=== PATIENT | male | born 1955 | race Caucasian/White ===

== ENCOUNTER 2016-10-12 07:56 | Emergency (ER) | payer BC ==
[2016-10-12] MEDS ORDERED: Sodium Chloride 0.9% 10 ML Syringe FLUSH PRN (08:31)
[2016-10-12] MEDS ORDERED: Ondansetron 4 MG/2 ML SDV IVPUSH ONE (08:31)
[2016-10-12] MEDS ORDERED: Sodium Chloride 0.9% 1,000 ML IV STA (08:31)
[2016-10-12] MEDS ORDERED: HYDROmorphone 0.5 MG/0.5 ML Syringe IVPUSH ONE (08:32)
--- NOTE | 2016-10-12 09:13 | EDM.PDOC ---
ED HPI GENERAL MEDICAL PROBLEM - General Chief Complaint: Abdominal Pain Stated Complaint: ABDOMINAL PAIN Time Seen by Provider: 10/12/16 08:20 Source of Information: Reports: Patient History Limitations: Reports: No Limitations - History of Present Illness INITIAL COMMENTS - FREE TEXT/NARRATIVE: The patient woke up with RUQ abdominal pain early this morning at 3am. He has nausea and vomiting with it. He has no diarrhea or dysuria. When he went to bed last night, he was feeling fine. He has no fever, chills, cough, chest pain or shortness of breath. He still has his appendix and gallbladder. Onset: Sudden Duration: Hour(s): (3am) Location: Reports: Abdomen Quality: Reports: Sharp Severity: Moderate Improves with: Reports: None Worsens with: Reports: None Context: Reports: Activity (sleeping) Associated Symptoms: Reports: Nausea/Vomiting. Denies: Chest Pain, Cough, Fever /Chills, Shortness of Breath Right Middle Abdominal Pain Score (Numeric/FACES): 10 - Related Data Allergies Allergy/AdvReac Type Severity Reaction Status Date / Time No Known Allergies Allergy Verified 10/12/16 08:06 Home Meds: Home Meds Albuterol [IJD: Ventolin HFA] 2 puff INH DAILY PRN 10/12/16 [History] Aspirin [Ecotrin] 81 mg PO DAILY 10/12/16 [History] Doxepin [SINEquan] 30 mg PO DAILY 10/12/16 [History] Glycopyrrolate [Robinul] 1 mg PO TID PRN #20 tablet 10/12/16 [Rx] Hydrocodone/Acetaminophen [Hydrocodon-Acetaminophen 5-325] 1 - 2 each PO Q6HR PRN #20 tablet 10/12/16 [Rx] Past Medical History - Past Health History Medical/Surgical History: Denies Medical/Surgical History Respiratory History: Reports: Asthma Psychiatric History: Reports: None Social & Family History - Tobacco Use Smoking Status *Q: Never Smoker Second Hand Smoke Exposure: No ED ROS GENERAL - Review of Systems Review Of Systems: See Below Constitutional: Reports: No Symptoms HEENT: Reports: No Symptoms Respiratory: Reports: No Symptoms Cardiovascular: Reports: No Symptoms Endocrine: Reports: No Symptoms GI/Abdominal: Reports: Abdominal Pain, Nausea, Vomiting. Denies: Diarrhea : Reports: No Symptoms Musculoskeletal: Reports: No Symptoms ED EXAM, GI/ABD - Physical Exam Exam: See Below Exam Limited By: No Limitations General Appearance: Alert, No Apparent Distress Ears: Normal External Exam Nose: Normal Inspection Head: Atraumatic, Normocephalic Neck: Normal Inspection Respiratory/Chest: No Respiratory Distress, Lungs Clear, Normal Breath Sounds Cardiovascular: Regular Rate, Rhythm, No Edema, No Murmur GI/Abdominal: Soft, No Organomegaly, No Mass, Tenderness (Moderate to the RUQ) Course - Vital Signs Last Recorded V/S: Last Vital Signs Temp 96.6 F 10/12/16 08:02 Pulse 63 10/12/16 08:02 Resp 18 10/12/16 08:02 BP 160/99 H 10/12/16 08:02 Pulse Ox 98 10/12/16 08:02 - Orders/Labs/Meds Orders: Active Orders 24 hr Category Date Time Status Peripheral IV Care [RC] . DIRECTED Care 10/12/16 08:31 Active Sodium Chloride 0.9% [Saline Flush] Med 10/12/16 08:31 Active 10 ml FLUSH ASDIRECTED PRN ED Antiemetic Medication Reflex [OM.PC] Stat Oth 10/12/16 08:32 Ordered Peripheral IV Insertion Adult [OM.PC] Stat Oth 10/12/16 08:31 Ordered Medication Orders Sodium Chloride (Saline Flush) 10 ml FLUSH ASDIRECTED PRN PRN Reason: Keep Vein Open Last Admin: 10/12/16 08:41 Dose: 10 ml Labs: Laboratory Tests 10/12/16 10/12/16 10/12/16 Range/Units 08:31 08:31 10:12 WBC 8.72 (4.23-9.07) K/mm3 RBC 4.95 (4.63-6.08) M/mm3 Hgb 15.1 (13.7-17.5) gm/L Hct 44.3 (40.1-51.0) % MCV 89.5 (79.0-92.2) fl MCH 30.5 (25.7-32.2) pg MCHC 34.1 (32.2-35.5) g/dl RDW Std Deviation 46.1 H (35.1-43.9) fL Plt Count 187 (163-337) K/mm3 MPV 10.5 (9.4-12.3) fl Neut % (Auto) 80.2 H (34.0-67.9) % Lymph % (Auto) 12.5 L (21.8-53.1) % Sanders % (Auto) 6.3 (5.3-12.2) % Eos % (Auto) 0.6 L (0.8-7.0) Baso % (Auto) 0.3 (0.1-1.2) % Neut # (Auto) 6.99 H (1.78-5.38) K/mm3 Lymph # (Auto) 1.09 L (1.32-3.57) K/mm3 Sanders # (Auto) 0.55 (0.30-0.82) K/mm3 Eos # (Auto) 0.05 (0.04-0.54) K/mm3 Baso # (Auto) 0.03 (0.01-0.08) K/mm3 Sodium 138 (136-145) mEq/L Potassium 4.1 (3.5-5.1) mEq/L Chloride 103 (98-107) mEq/L Carbon Dioxide 29 (21-32) mEq/L Anion Gap 10.1 (5-15) BUN 25 H (7-18) mg/dL Creatinine 1.4 H (0.7-1.3) mg/dL Est Cr Clr Drug Dosing 65.39 mL/min Estimated GFR (MDRD) 51 (>60) mL/min BUN/Creatinine Ratio 17.9 (14-18) Glucose 117 H (80-115) mg/dL Calcium 8.7 (8.5-10.1) mg/dL Total Bilirubin 0.6 (0.2-1.0) mg/dL AST 18 (15-37) U/L ALT 23 (16-63) U/L Alkaline Phosphatase 70 (46-116) U/L Total Protein 7.2 (6.4-8.2) g/dl Albumin 3.9 (3.4-5.0) g/dl Globulin 3.3 gm/dL Albumin/Globulin Ratio 1.2 (1-2) Lipase 138 (73-393) U/L Urine Color Yellow (Yellow) Urine Appearance Clear (Clear) Urine pH 6.5 (5.0-8.0) Ur Specific Daggett > or = 1.030 (1.005-1.030) Urine Protein 1+ H (Negative) Urine Glucose (UA) Negative (Negative) Urine Ketones Negative (Negative) Urine Occult Blood Negative (Negative) Urine Nitrite Negative (Negative) Urine Bilirubin Negative (Negative) Urine Urobilinogen 0.2 (0.2-1.0) Ur Leukocyte Esterase Negative (Negative) Urine RBC 0-5 (0-5) /hpf Urine WBC 0-5 (0-5) /hpf Ur Epithelial Cells 0-5 (0-5) /hpf Urine Bacteria Not seen (FEW) /hpf Urine Mucus Not seen (FEW) /hpf Meds: Medications Generic Name Dose Route Start Last Admin Trade Name Freq PRN Reason Stop Dose Admin Sodium Chloride 10 ml 10/12/16 08:31 10/12/16 08:41 Saline Flush FLUSH 10 ml ASDIRECTED PRN Administration Keep Vein Open Discontinued Medications Generic Name Dose Route Start Last Admin Trade Name Freq PRN Reason Stop Dose Admin Hydromorphone HCl 0.5 mg 10/12/16 08:32 10/12/16 08:39 Dilaudid IVPUSH 10/12/16 08:33 0.5 mg ONETIME ONE Administration Sodium Chloride 1,000 mls @ 1,000 mls/hr 10/12/16 08:31 10/12/16 08:39 Normal Saline IV 10/12/16 09:30 1,000 mls/hr .BOLUS STA Administration Ondansetron HCl 4 mg 10/12/16 08:31 10/12/16 08:39 Zofran IVPUSH 10/12/16 08:32 4 mg ONETIME ONE Administration - Re-Assessments/Exams Free Text/Narrative Re-Assessment/Exam: 10/12/16 09:11 I ordered an IV NS 1L bolus, zofran 4mg IV, dilaudid 0.5mg IV, labs, UA and an US of the RUQ. I did an US and he did have an dilated gallbladder. I am not sure of the ducts so I will get an official scan done. 10/12/16 11:56 His CBC and CMP look good. His lipase is negative. His UA shows no UTI. His US showed a 1.3cm abnormality within the liver most likely representing hemangioma. No additional abnormality is appreciated on right upper quadrant abdominal ultrasound. He is now having some pain in his right flank. I then ordered a CT of his abdomen and pelvis to look for a kidney stone. It showed a 9mm stone in the gallbladder which is most likely due to a cystic duct stone. Difficult to exclude cystic duct obstruction. This is not identified even in retrospect on prior US which may relate to this area being hidden by bowel gas. I called Dr Luevano our general surgeon and he recommended I put him on some robinul and he can follow up back at home with a general surgeon to have his gallbladder out. He is feeling good now. I will discharge him home. Departure - Departure Time of Disposition: 12:00 Disposition: Home, Self-Care 01 Condition: Good Clinical Impression: Gall stone Qualifiers: Cholecystitis presence: without cholecystitis Biliary obstruction: with biliary obstruction Qualified Code(s): K80.21 - Calculus of gallbladder without cholecystitis with obstruction - Discharge Information Prescriptions: Hydrocodone/Acetaminophen [Hydrocodon-Acetaminophen 5-325] 1 - 2 each PO Q6HR PRN #20 tablet PRN Reason: Pain Glycopyrrolate [Robinul] 1 mg PO TID PRN #20 tablet PRN Reason: Pain Forms: ED Department Discharge Additional Instructions: Avoid fried/greasy/fatty food. Take the robinul 3 times per day as needed for any pain and if that does not work try some hydrocodone. Follow up with your doctor when you get home. Please return if you are worse. - My Orders Last 24 Hours: My Active Orders 10/12/16 08:31 Peripheral IV Care [RC] . DIRECTED Sodium Chloride 0.9% [Saline Flush] 10 ml FLUSH ASDIRECTED PRN Peripheral IV Insertion Adult [OM.PC] Stat 10/12/16 08:32 ED Antiemetic Medication Reflex [OM.PC] Stat - Assessment/Plan Last 24 Hours: My Active Orders 10/12/16 08:31 Peripheral IV Care [RC] . DIRECTED Sodium Chloride 0.9% [Saline Flush] 10 ml FLUSH ASDIRECTED PRN Peripheral IV Insertion Adult [OM.PC] Stat 10/12/16 08:32 ED Antiemetic Medication Reflex [OM.PC] Stat
--- NOTE | 2016-10-12 10:37 | US ---
Limited abdominal ultrasound: Multiple real-time images were obtained of the right upper quadrant. No previous abdominal imaging. Findings: Gallbladder shows no gallstones. No gallbladder wall thickening or biliary duct dilatation is seen. Right kidney shows no hydronephrosis or mass. Pancreas is incompletely seen. Visualized portions of the pancreas appear within normal limits. Hyperechoic lesion is identified within the liver measuring approximately 1.3 cm most likely due to small hemangioma. No additional abnormality is appreciated within the liver. Impression: 1. 1.3 cm abnormality within the liver most likely representing hemangioma. 2. No additional abnormality is appreciated on right upper quadrant abdominal ultrasound. Diagnostic code #2
--- NOTE | 2016-10-12 11:35 | CT ---
CT abdomen and pelvis Technique: Multiple axial sections were obtained from above the dome of the diaphragm inferiorly through the pubic symphysis. Intravenous and oral contrast have not been given. Study was performed as a ureteral stone protocol. Comparison: Previous right upper quadrant abdominal ultrasound performed earlier on the same day (09:10 AM). Findings: Kidneys show no abnormal calcifications. Cyst is identified off the left kidney measuring approximately 2.3 cm. No hydronephrosis is seen. No ureteral dilatation is seen. No abnormal calcifications are seen along the course of the ureters. No abnormal calcifications are seen within the bladder. Prostate calcifications are incidentally noted. Slight dependent atelectasis is seen posteriorly within both lung bases. Liver shows no focal abnormality. Abnormality noted on previous ultrasound is not appreciated on this noncontrast exam. Stone noted within the neck of the gallbladder. Ultrasound was reviewed and this is not visualized on previous ultrasound which may relate to bowel gas. This calcification measures approximately 9 mm and could possibly represent a cystic duct stone if patient has symptoms of cystic duct obstruction. Pancreas is normal. Aorta shows no aneurysmal dilatation. No retroperitoneal adenopathy or mesenteric abnormalities are seen. Appendix is seen which appears normal. No pelvic mass or adenopathy is identified. No bowel dilatation is seen. Bone window settings were reviewed which shows scattered degenerative change within the spine most severe at L5-S1. Impression: 1. 9 mm stone In the gallbladder which is most likely due to a cystic duct stone. Difficult to exclude cystic duct obstruction. This is not identified even in retrospect on prior ultrasound which may relate to this area being hidden by bowel gas. If cystic duct obstruction needs to be completely excluded or confirmed, biliary HIDA scan would be helpful. 2. Incidental renal cyst. Other incidental findings. Diagnostic code #3
[2016-10-12 12:21] VITALS: BP 125/75
== END 2016-10-12 12:18 | disposition home or self-care (01) ==
LOC: JD.ED 07:56
DX: K80.21 Calculus of gallbladder without cholecystitis with obstruction (principal); J45.909 Unspecified asthma, uncomplicated; Z79.82 Long term (current) use of aspirin; Z79.899 Other long term (current) drug therapy
CPT/HCPCS: 36415; 74176; 76705; 80053; 81001; 83690; 85025; 96361; 96374; 96375; 99284; J1170; J2405; J7040; J7050